=== PATIENT | male | born 1985 | race Caucasian/White ===

== ENCOUNTER 2020-04-05 20:22 | Emergency (ER) | payer MEDICAID ==
[~2020-04-05] VITALS: Ht 190.5 cm; Wt 65.9 kg
[2020-04-05 20:31] VITALS: BP 104/35
[2020-04-05] MEDS ORDERED: apixaban 5mg tablet PO ONE (21:35)
[2020-04-05] MEDS ORDERED: APIX5TAB3 PO (21:35)
== END 2020-04-05 22:14 | disposition home or self-care (01) ==
LOC: ER 20:24
DX: F41.9 Anxiety disorder, unspecified (principal); Z76.0 Encounter for issue of repeat prescription; F32.9 Major depressive disorder, single episode, unspecified; Z86.718 Personal history of other venous thrombosis and embolism; Z79.899 Other long term (current) drug therapy
CPT/HCPCS: 99281; 99283